=== PATIENT | female | born 1940 | race Caucasian/White ===

== ENCOUNTER 2021-05-25 07:36 | Emergency (ER) | payer MEDICARE, OTHER ==
[2021-05-25 07:49] VITALS: BP 148/74; PULSE 66
[2021-05-25] MEDS ORDERED: Sodium Chloride 0.9% 10 ML Syringe FLUSH PRN (08:03)
== END 2021-05-25 11:30 | disposition home or self-care (01) ==
LOC: JD.ED 07:36
DX: R07.89 Other chest pain (principal); K44.9 Diaphragmatic hernia without obstruction or gangrene; E78.00 Pure hypercholesterolemia, unspecified; I10 Essential (primary) hypertension; M19.90 Unspecified osteoarthritis, unspecified site; Z88.1 Allergy status to other antibiotic agents; Z79.82 Long term (current) use of aspirin; Z88.8 Allergy status to other drugs, medicaments and biological substances; Z79.899 Other long term (current) drug therapy
CPT/HCPCS: 36415; 71046; 71046-26; 74018; 74018-26; 80053; 83735; 83880; 84443; 84484; 85025; 85379; 85610; 85730; 86140; 93005; 93010; 99285; 99285-25

== ENCOUNTER 2023-04-12 07:26 | Emergency (ER) | payer MEDICARE, OTHER ==
[2023-04-12] MEDS ORDERED: Aspirin 81 MG Tab.Chew PO ONE (07:51)
[2023-04-12] MEDS ORDERED: Sodium Chloride 0.9% 10 ML Syringe FLUSH PRN ×2 (07:51→09:30)
[2023-04-12 08:14] LABS: BASOPHILS ABSOLUTE AUTO 0.1 K/mm3 (0.0-0.2); BASOPHILS PERCENT AUTO 1.5 % (0.0-1.0); EOSINOPHILS ABSOLUTE AUTO 0.4 K/mm3 (0.0-0.4); EOSINOPHILS PERCENT AUTO 6.4 % (0.0-6.0); HEMATOCRIT 33.6 % (37.0-47.0); HEMOGLOBIN 10.9 gm/dl (12.0-16.0); IMMATURE GRAN ABSOLUTE AUTO 0.01 K/mm3 (0.00-0.05); IMMATURE GRAN PERCENT AUTO 0.2 % (0.0-0.4); LYMPHOCYTES ABSOLUTE AUTO 1.1 K/mm3 (1.0-4.8); LYMPHOCYTES PERCENT AUTO 20.7 % (24.0-44.0); MEAN CORPUSCULAR HEMOGLOBIN 33.6 pg (28.0-32.0); MEAN CORPUSCULAR HGB CONC 32.4 g/dl (32.0-36.0); MEAN CORPUSCULAR VOLUME 103.7 fl (83.0-99.0); MEAN PLATELET VOLUME 9.6 fl (9.4-12.3); MONOCYTES ABSOLUTE AUTO 0.5 K/mm3 (0.0-0.8); MONOCYTES PERCENT AUTO 8.7 % (0.0-8.0); NEUTROPHILS ABSOLUTE AUTO 3.5 K/mm3 (1.8-7.7); NEUTROPHILS PERCENT AUTO 62.5 % (41.0-71.0); PLATELET COUNT,PLT 171 K/mm3 (150-400); RED BLOOD CELL COUNT 3.24 M/mm3 (4.10-5.30); WHITE BLOOD CELL COUNT,WBC 5.51 K/mm3 (3.9-11.3)
[2023-04-12 08:42] LABS: A/G RATIO 1.1 (1-2); ALBUMIN 3.4 g/dl (3.4-5.0); ANION GAP 12.3 (5-15); BILIRUBIN TOTAL 0.5 mg/dL (0.2-1.0); CALCIUM 8.8 mg/dL (8.5-10.1); EST CRCL DRUG DOSING (CG) 40.04 mL/min; PROTEIN TOTAL,TP 6.4 g/dl (6.4-8.2)
[2023-04-12 08:50] LABS: POTASSIUM,K 4.3 mEq/L (3.5-5.1)
[2023-04-12] MEDS ORDERED: Iopamidol 755 Mg/ML 100 ML Bottle IVPUSH ONE (09:30)
[2023-04-12] MEDS ORDERED: Sodium Chloride 0.9% 100 ML IV SCH (09:30)
[2023-04-12 13:15] VITALS: BP 126/66; PULSE 62
== END 2023-04-12 13:13 | disposition home or self-care (01) ==
LOC: JD.ED 07:26
DX: R07.89 Other chest pain (principal); N28.1 Cyst of kidney, acquired; I10 Essential (primary) hypertension; E78.00 Pure hypercholesterolemia, unspecified; M19.90 Unspecified osteoarthritis, unspecified site; Z79.82 Long term (current) use of aspirin; Z79.899 Other long term (current) drug therapy; Z90.49 Acquired absence of other specified parts of digestive tract; Z90.710 Acquired absence of both cervix and uterus; Z88.8 Allergy status to other drugs, medicaments and biological substances
CPT/HCPCS: 36415; 71045; 71275; 76775; 80053; 84484; 85025; 85379; 93005; 99285; A9270; J3490; Q9967; 93010; 99284

== ENCOUNTER 2023-11-01 07:56 | Day surgery (SDC) | payer MEDICARE, OTHER ==
[2023-11-01] MEDS: Polymyxin B/Trimethoprim 10 ML Bottle EYELF SCH (07:40)
[2023-11-01] MEDS: Brimonidine 0.2% Ophth Soln 5 ML Bottle EYELF SCH (07:44)
[2023-11-01] MEDS: Phenylephrine 2.5% Ophth Soln 2 ML Bot EYELF SCH (07:48)
[2023-11-01] MEDS: Tropicamide 1% Ophth Soln 3 ML Bottle EYELF SCH (07:54)
[2023-11-01] MEDS: Tetracaine HCl/PF 0.5% 4 ML Bottle EYEBOTH SCH (08:54)
[2023-11-01] MEDS: Lidocaine 1% PF 2 ML SDV INJECT SCH (09:21)
[2023-11-01] MEDS: Pilocarpine 4% Ophth Soln 15 ML Bot EYELF SCH (09:32)
[2023-11-01] MEDS: Cefuroxime 10 MG/ML SYRINGE EYELF SCH (09:32)
[2023-11-01 09:53] VITALS: BP 126/72; PULSE 63
== END 2023-11-01 09:43 | disposition home or self-care (01) ==
LOC: JD.SDS 07:56
PROVIDERS: ATTEND Ophthalmology
DX: H25.813 Combined forms of age-related cataract, bilateral (principal); I10 Essential (primary) hypertension; E78.2 Mixed hyperlipidemia; Z90.49 Acquired absence of other specified parts of digestive tract; Z98.890 Other specified postprocedural states; Z79.82 Long term (current) use of aspirin; Z79.899 Other long term (current) drug therapy
CPT/HCPCS: 66984; A9270; J0697; J3490

== ENCOUNTER 2024-07-31 08:59 | Day surgery (SDC) | payer MEDICARE, OTHER ==
[2024-07-31] MEDS: Phenylephrine 2.5% Ophth Soln 2 ML Bot EYERT SCH (07:19)
[2024-07-31] MEDS: Brimonidine 0.2% Ophth Soln 5 ML Bottle EYERT SCH (07:20)
[2024-07-31] MEDS: Polymyxin B/Trimethoprim 10 ML Bottle EYERT SCH (07:20)
[2024-07-31] MEDS: Lidocaine 1% PF 2 ML SDV INJECT SCH (07:20)
[2024-07-31] MEDS: Cefuroxime 10 MG/ML SYRINGE EYERT SCH (07:20)
[2024-07-31] MEDS: Pilocarpine 4% Ophth Soln 15 ML Bot EYERT SCH (07:20)
[2024-07-31] MEDS: Tetracaine HCl/PF 0.5% 4 ML Bottle EYEBOTH SCH (07:20)
[2024-07-31 09:52] VITALS: BP 124/88; PULSE 64
[2024-07-31] MEDS: Tropicamide 1% Ophth Soln 3 ML Bottle EYERT SCH (10:05)
== END 2024-07-31 11:52 ==
LOC: JD.SDS 08:59
PROVIDERS: ATTEND Ophthalmology
DX: H25.811 Combined forms of age-related cataract, right eye (principal); H35.3132 Nonexudative age-related macular degeneration, bilateral, intermediate dry stage; H35.363 Drusen (degenerative) of macula, bilateral; E78.2 Mixed hyperlipidemia; I10 Essential (primary) hypertension; Z96.1 Presence of intraocular lens; Z79.899 Other long term (current) drug therapy; Z88.1 Allergy status to other antibiotic agents
CPT/HCPCS: 66984; J0697; J3490